=== PATIENT | female | born 1945 | race Caucasian/White ===

== ENCOUNTER 2020-05-02 16:34 | Inpatient (IN) | payer OTHER, SELFPAY ==
[~2020-05-02] VITALS: Ht 154.9 cm; Wt 87.8 kg
[2020-05-02 17:30] LABS: RED BLOOD COUNT 3.09 M/UL (4.00-5.10); WHITE BLOOD COUNT 8.7 K/UL (4.5-11.0)
[2020-05-02] MEDS ORDERED: FUROSEMIDE20 MG PO (21:22)
[2020-05-02] MEDS ORDERED: IBU600 MG PO (21:22)
[2020-05-02] MEDS ORDERED: NYSTATIN60 GM TP (21:23)
[2020-05-02] MEDS ORDERED: PREDNISONE10 MG PO (21:24)
[2020-05-02] MEDS ORDERED: FLONASE 0.05% N16 GM (21:25)
[2020-05-02] MEDS ORDERED: PAROXETINE HCL40 MG PO (21:25)
[2020-05-02] MEDS ORDERED: PROVENTIL HFA6.7 GM INH (21:26)
[2020-05-02] MEDS ORDERED: ATORVASTATIN CA40 MG PO (21:27)
[2020-05-02] MEDS ORDERED: ALBUTEROL2.5 MG/3 M INH (21:27)
[2020-05-02] MEDS ORDERED: LOPRESSOR 25 MG25 MG PO (21:28)
[2020-05-02] MEDS ORDERED: CLOPIDOGREL75 MG PO (21:28)
[2020-05-02] MEDS ORDERED: MIRTAZAPINE15 MG PO (21:28)
[2020-05-02] MEDS ORDERED: NITROGLYCERIN0.4 MG SL (21:29)
[2020-05-02] MEDS ORDERED: PROTONIX 40 MG40 M1 PO (21:29)
[2020-05-02] MEDS ORDERED: LEVEMIR FL100 UNIT/1 SQ (21:30)
[2020-05-02] MEDS ORDERED: FERROUS SULFAT325 MG PO (21:31)
[2020-05-03 16:01] LABS: HEMOGLOBIN 8.6 gm/dl (12.3-15.3); RED BLOOD COUNT 2.96 M/UL (4.00-5.10); WHITE BLOOD COUNT 9.2 K/UL (4.5-11.0)
[2020-05-04 03:43] LABS: HEMOGLOBIN 8.7 gm/dl (12.3-15.3); RED BLOOD COUNT 2.97 M/UL (4.00-5.10); WHITE BLOOD COUNT 10.1 K/UL (4.5-11.0)
--- NOTE | 2020-05-04 06:17 | NUR ---
I HEARD BED ALARM GOING OFF IN PTS ROOM. I STARTED RUNNING DOWN THE HALLWAY AND THEN HEARD A STAFF ASSIST ALARM GOING OFF. WHEN I ENTERED PTS ROOM THE TECH WAS IN THE ROOM AND THE PT WAS INCREASINGLY CONFUSED AND EXPERIENCING LABORED BREATHING. WE CHECKED THE PTS O2 SAT AND IT WAS 78, THAT WAS WITH THE PT ON 02 AT 2L NC. I TURNED THE PTS O2 UP TO 6L NC AND THE O2 CAME UP TO 98% I CALLED THE DR. GAUTAM TO NOTIFY HIM. I ASKED HIM HE IF WANTED AN ABG OR ANYTHING DONE. HE STATED HE DIDN'T TO JUST KEEP HER ON 02 AT 6L NC. NO FURTHER ORDERS WERE OBTAINED. PT ISN'T IN DISTRESS AT THIS TIME. WCTM FOR ANY ACUTE CHANGES
[2020-05-05 00:16] LABS: HEMOGLOBIN 9.6 gm/dl (12.3-15.3); WHITE BLOOD COUNT 11.1 K/UL (4.5-11.0)
[2020-05-05 00:19] LABS: RED BLOOD COUNT 3.27 M/UL (4.00-5.10)
--- NOTE | 2020-05-05 00:21 | NUR ---
PATIENT YELLING OUT INTO THE HALLWAY THAT SHE WAS LEAVING. UPON THE TECHS ARRIVAL SHE WAS TRYING TO CRAWL OUT OF BED. SHE BEGAN THROWING THINGS AT US AND CUSSING VERY LOUDLY. SHE WOULD NOT LET US CHECK HER VITALS, UNHOOK HER IV OR GET NEAR HER. SHE IS NO LONGER ORIENTED, AND TOTALLY CONFUSED. I NOTIFIED MD OF HER CONDITION CHANGE AND HE ORDERED AN ABG AND LAB WORK. RESPIRATORY CAME TO THE FLOOR TO DRAW THE ABG. WE WERE UNSUCCESSFUL IN GETTING THE ABG. I CALLED MD BACK TO ASK ABOUT A VBG WITH THE LAB WORK AND REUPDATE IN HER AGITATION. HE ALLOWED FOR THE VBG AND 10MG OF GEODON. PATIENT CONTINUOUSLY YELLING AND CUSSING, TRYING TO FIGHT OUT OF BED, SWINGING AND KICKING AT STAFF. SHE WAS GIVEN THE GEODON AND LABS WERE OBTAINED. MD SAID TO CALL HIM BACK WITH RESULTS. SECURITY ON THE FLOOR WITH THE PATIENT.
[2020-05-05 12:02] LABS: HEMOGLOBIN 9.1 gm/dl (12.3-15.3); RED BLOOD COUNT 3.21 M/UL (4.00-5.10)
--- NOTE | 2020-05-06 15:10 | NUR ---
PATIENT LEFT THE FLOOR TO GO DOWN TO MRI AT THIS TIME. DR ZAYAS AGREES THAT SHE CAN GO DOWN WITHOUT TELEMETRY. VITAL SIGNS ARE STABLE, PATIENT RESTING PEACEFULLY AT THIS TIME. O2 INTACT VIA N/C. PATIENT IS IN NO DISTRESS AT THIS TIME.
--- NOTE | 2020-05-06 15:38 | NUR ---
PATIENT UNABLE TO TAKE MORNING PO MEDS DUE TO ALTERED MENTAL STATUS. MD AWARE. ATTEMPTED TO CALL MRI TO SEE WHEN THEY WOULD BE COMING TO GET PATIENT TO DO MRI. SPOKE WITH DAUGHTER THIS MORNING HER NAME IS SANTANA, SHE SAID SHE WILL BE COMING TODAY TO SEE HER MOTHER AND TO SIT WITH HER. BLOOD GLUCOSE CONTINUED TO BE MONITORED EVERY HOUR AND ARE MAINTAINED AT NORMAL LEVELS. PATIENT IS RESTING AT THIS TIME WITH BED IN LOWEST POSITION, CALL LIGHT WITHIN REACH AND A LOSS PREVENTION SUPERVISOR AT BEDSIDE UNTIL HER DAUGHTER ARRIVES. NO DISTRESS NOTED.
--- NOTE | 2020-05-06 15:49 | NUR ---
PATIENT RETURNED TO FLOOR AT THIS TIME RESTING QUIETLY, NO DISTRESS NOTED. DAUGHTER AT BEDSIDE. WILL CONTINUE TO MONITOR PATIENT.
[2020-05-07 06:46] LABS: HEMOGLOBIN 8.9 gm/dl (12.3-15.3); RED BLOOD COUNT 3.07 M/UL (4.00-5.10); WHITE BLOOD COUNT 9.6 K/UL (4.5-11.0)
[2020-05-08 04:38] LABS: HEMOGLOBIN 8.8 gm/dl (12.3-15.3); RED BLOOD COUNT 2.96 M/UL (4.00-5.10)
[2020-05-08 05:17] LABS: WHITE BLOOD COUNT 5.5 K/UL (4.5-11.0)
[2020-05-09 03:28] LABS: HEMOGLOBIN 7.8 gm/dl (12.3-15.3); RED BLOOD COUNT 2.72 M/UL (4.00-5.10); WHITE BLOOD COUNT 4.2 K/UL (4.5-11.0)
[2020-05-09] MEDS ORDERED: HUMALOG 10100 UNITS/ SC (15:24)
[2020-05-10 05:37] LABS: HEMOGLOBIN 8.2 gm/dl (12.3-15.3); RED BLOOD COUNT 2.78 M/UL (4.00-5.10); WHITE BLOOD COUNT 3.2 K/UL (4.5-11.0)
[2020-05-10] MEDS ORDERED: LANTUS INS100 UTS/M1 SC (18:09)
--- NOTE | 2020-05-10 18:14 | NUR ---
PATIENT MORE ORIENTED NOW, ASKING FOR 7UP, ASKING FOR THE BEDPAIN, RINGING THE LIGHT.
[2020-05-11 04:14] LABS: HEMOGLOBIN 8.4 gm/dl (12.3-15.3); RED BLOOD COUNT 2.79 M/UL (4.00-5.10)
--- NOTE | 2020-05-12 02:23 | NUR ---
FRESH FOODS CAKE DECORATOR NOTED COMMENT UNDER PATIENT'S ELECTRONIC CODE STATUS ORDER STATING, "DNR DNI BUT FULL CODE TREATMENT AT THIS TIME." FRESH FOODS CAKE DECORATOR NOTIFIED PHYSICAL SCIENCES INSTRUCTOR FOR CLARIFICATION. REBUCK INSTRUCTED FRESH [employer] CAKE DECORATOR TO CONTACT PATIENT'S DAUGHTER IF PATIENT HAD A DECLINE IN CONDITION AND IF NOT TO PASS ON TO DAYSWYFT NURSE THAT THE ORDER NEEDED CLARIFICATION. FRESH FOODS CAKE DECORATOR ALSO LEFT A NOTE IN THE PATIENT'S CHART TO REMIND MD TO CLARIFY CODE STATUS SOON POSSIBLE.----GEORGE HAIR RN 05/12/2020 0145.
[2020-05-12 09:06] LABS: HEMOGLOBIN 8.7 gm/dl (12.3-15.3); RED BLOOD COUNT 3.04 M/UL (4.00-5.10); WHITE BLOOD COUNT 4.2 K/UL (4.5-11.0)
--- NOTE | 2020-05-12 18:00 | NUR ---
DR CALVILLO SPOKE TO DAUGHTER SANTANA PT IS TO BE A DNR
--- NOTE | 2020-05-12 22:46 | NUR ---
PATIENT NOTED TO BE VERY AGITATED THIS SHIFT. SHE HAS REFUSED TO HAVE HER VITAL SIGNS TAKEN, BREATHING TREATMENTS, AND SCHEDULED MEDICATIONS. DR. CALVILLO IS AWARE OF HER HISTORY OF TREATMENT REFUSAL. DIRECTOR OF EDUCATION AND STAFF OFFERED TREATMENTS MULTIPLE TIMES, ALLOWING PATIENT TO SELF-SOOTHE BETWEEN OFFERS. PATIENT CONTINUES TO REFUSE TREATMENT FROM STAFF. KILN FIRER AND CONTINUOUS PULSE OX IN PLACE TO ALLOW DIRECTOR OF EDUCATION TO MONITOR PATIENT. NO S/SX OF PAIN, DISCOMFORT, OR DISTRESS AT PRESENT. BED LOCKED AND LOW. CALL LIGHT WITHIN REACH.-----GEORGE HAIR RN 05/12/2020 2092.
--- NOTE | 2020-05-12 23:02 | NUR ---
[employer] CONTACTED [facility] FOR A PSYCH EVALUATION PER ORDER OF DR. CALVILLO. DOCUMENTATION FAXED, PENDING FURTHER INSTRUCTION PER [facility]. CALL BACK NUMBER PROVIDED TO [facility].----GEORGE HAIR RN 05/12/2020 [id number].
--- NOTE | 2020-05-13 02:24 | NUR ---
[facility] AND STAFF ATTEMPTED TO INITIATE [facility] PSYCH EVALUATION VIA ZOOM, BUT PATIENT REFUSED. STAFF ATTEMPTED TO EXPLAIN TO PATIENT THAT IT WOULD JUST INVOLVE ANSWERING A FEW QUESTIONS BUT THE PATIENT BECAME INCREASINGLY AGITATED AND CONTINUED TO REFUSE TO PARTICIPATE. THE [facility] STAFF MEMBER INSTRUCTED [facility] TO WAIT UNTIL THE PATIENT WAS WILLING TO PARTICIPATE TO ATTEMPT EVALUATION AGAIN. [facility] WILL INFORM ONCOMING NURSE. MOTOR VEHICLE LICENSE CLERK MADE AWARE.-----GEORGE HAIR RN 05/13/2020 0130
--- NOTE | 2020-05-13 03:07 | NUR ---
PATIENT CONTINUES TO REFUSE TO LET STAFF OBTAIN VITAL SIGNS. TELEMETRY AND CONTINUOUS PULSE OX IN PLACE. NO S/SX OF PAIN OR DISTRESS. SUPERVISOR MAJOR APPLIANCE ASSEMBLY AND STAFF EXITED ROOM TO ALLOW PATIENT TO SELF-SOOTHE.----GEORGE HAIR RN 05/13/2020 0230.
[2020-05-13] MEDS ORDERED: METHYLPREDNISOLO4 M1 PO ×3 (11:01)
== END 2020-05-13 15:20 | disposition home or self-care (01) | DRG 291 ==
LOC: ER1 16:34 → M/S 18:40 → MED SURG 4 18:40 → CDU 18:40 → M/S 22:31 → PROG CARE 05-05 15:42 → CCU 05-06 20:43 → MED SURG 4 05-08 21:22
PROVIDERS: Emergency Medicine; Internal Medicine; Internal Medicine Pulmonary Disease; Physician Assistant Medical; ADMIT Internal Medicine
PROC: B24BZZZ Ultrasonography of Heart with Aorta (ICD-10-PCS; 2020-05-03)
PROC: 02H633Z Insertion of Infusion Device into Right Atrium, Percutaneous Approach (ICD-10-PCS; principal; 2020-05-06)
PROC: B548ZZA Ultrasonography of Superior Vena Cava, Guidance (ICD-10-PCS; 2020-05-06)
DX: I13.0 Hypertensive heart and chronic kidney disease with heart failure and stage 1 through stage 4 chronic kidney disease, or unspecified chronic kidney disease (principal); I50.33 Acute on chronic diastolic (congestive) heart failure; A41.9 Sepsis, unspecified organism; J96.22 Acute and chronic respiratory failure with hypercapnia; J96.21 Acute and chronic respiratory failure with hypoxia; G93.41 Metabolic encephalopathy; J69.0 Pneumonitis due to inhalation of food and vomit; J44.1 Chronic obstructive pulmonary disease with (acute) exacerbation; E87.2 Acidosis; N17.9 Acute kidney failure, unspecified; N39.0 Urinary tract infection, site not specified; J98.11 Atelectasis; J44.0 Chronic obstructive pulmonary disease with (acute) lower respiratory infection; E66.2 Morbid (severe) obesity with alveolar hypoventilation; D61.818 Other pancytopenia; I16.0 Hypertensive urgency; I25.10 Atherosclerotic heart disease of native coronary artery without angina pectoris; Z95.5 Presence of coronary angioplasty implant and graft; I25.5 Ischemic cardiomyopathy; Z99.81 Dependence on supplemental oxygen; I48.0 Paroxysmal atrial fibrillation; Z79.01 Long term (current) use of anticoagulants; E11.22 Type 2 diabetes mellitus with diabetic chronic kidney disease; N18.30 Chronic kidney disease, stage 3 unspecified; R19.7 Diarrhea, unspecified; E86.0 Dehydration; Z20.828 Contact with and (suspected) exposure to other viral communicable diseases; G25.3 Myoclonus; Z66 Do not resuscitate; Z87.891 Personal history of nicotine dependence; D64.9 Anemia, unspecified; E11.65 Type 2 diabetes mellitus with hyperglycemia
CPT/HCPCS: ECHO; 36415; 36600; 70450; 70551; 71045; 76700; 80048; 80053; 80202; 81001; 82140; 82550; 82553; 82728; 82803; 82962; 83605; 83615; 83735; 83874; 83880; 84100; 84484; 85025; 85027; 85379; 85384; 85610; 85730; 86140; 87040; 87086; 87635; 93005; 93306; 94640; 94660; 94664; 94760; 96365; 96366; 96367; 96368; 96372; 96375; 97110; 97110-GP-CQ; 97162; 97166; 99285; C1751; J0360; J0456; J0696; J1610; J1650; J1940; J2060; J2185; J2920; J2930; J3370; J3486; J7030; J7040; J7070; Q0177; U0002